=== PATIENT | female | born 1960 | race Caucasian/White ===

== ENCOUNTER 2023-09-13 09:09 | Emergency (ER) | payer OTHER, SELFPAY ==
[2023-09-13] VITALS (17 sets, daily range): BP systolic 143–155; BP diastolic 79–102; PULSE 86; RESP 16; TEMP 37.1; O2SAT 92–99
--- NOTE | ~2023-09-13 | CT_ITS ---
EXAMINATION: CT brain wo con DATE: 09/13/2023 11:39 INDICATION: New headache TECHNIQUE: Computed tomography (CT) of the head was performed without intravenous contrast. The mA wa s adjusted according to patient size. Iterative reconstruction technique was employed. Exam dose: 60 5.33 mGy-cm total exam DLP. COMPARISON: None FINDINGS: No intracranial mass lesion or hemorrhage or recent cerebrovascular accident, midline shift or mass effect effect. Normal ventricular size. No subdural or epidural hematoma is detected. No fracture or bone destruction of the cranial vault. The mastoid air cells and included paranasal si nuses are unremarkable. IMPRESSION: No significant abnormality Reviewed, dictated and finalized at [facility]. Reviewed, dictated and finalized at location A. ITION NOTCHER IMPRESSION: No significant abnormality
--- NOTE | 2023-09-13 10:34 | ECG_ITS ---
Measurements Intervals [place] Rate: 73 P: 43 [place]: 158 QRS: 24 QRSD: 70 T: 43 QT: 379 QTc: 418 Interpretive Statements SINUS RHYTHM LOW QRS VOLTAGE IN PRECORDIAL LEADS [QRS DEFLECTION < 1.0 mV IN CHEST LEADS] NO PREVIOUS ECG AVAILABLE FOR COMPARISON Electronically Signed On 09-13-2023 19:50:53 SUSPECT ARTIST SUPERVISOR by Karen Olivas M.D.
[2023-09-13] MEDS: PROCHLORPERAZINE EDISYLATE 10 MG/2 ML VIAL IV PUSH (10:47)
[2023-09-13] MEDS: diphenhydrAMINE HCl INJ 50 MG/ML VIAL 25 MG IV PUSH (10:47)
[2023-09-13] MEDS: SODIUM CHLORIDE 0.9% IV 500 ML 999 ML IV CONT (10:47)
[2023-09-13 10:54] LABS: Basophils Absolute Auto 0.1 K/mm3 (0.0-0.1); Basophils Percent Auto 0.8 % (0.2-1.2); Eosinophils Absolute Auto 0.1 K/mm3 (0-0.3); Eosinophils Percent Auto 0.9 % (0-4.4); Hemoglobin 12.3 g/dL (12.0-15.0); Immature Granulocyte Absolute 0.05 K/mm3 (0.00-0.031); Immature Granulocyte Percent A 0.7 % (0-0.5); Lymphocytes Absolute Auto 1.77 K/mm3 (0.9-3.2); Lymphocytes Percent Auto 23.9 % (18.3-44.2); Mean Corpuscular HGB Conc 32.4 g/dl (32-36); Mean Corpuscular Hemoglobin 26.9 pg (26-34); Mean Platelet Volume 10.3 fl (7.4-10.4); Monocytes Absolute Auto 0.5 K/mm3 (0.1-0.6); Monocytes Percent Auto 6.1 % (2.6-8.5); Neutrophils Percent Auto 67.6 % (45.5-73.1); Platelet Count Result 382 k/mm3 (150-375); Red Blood Count 4.58 M/mm3 (4.2-5.4); Red Cell Distribution Width 13.6 % (11.5-14.5); White Blood Count 7.4 K/mm3 (4.5-10.0)
[2023-09-13 11:07] LABS: Alanine Aminotransferase 26 U/L (6-35); Albumin Level 3.8 g/dL (3.5-5.1); Alkaline Phosphatase 109 U/L (38-126); Anion Gap 5 mmol/L (8-16); Aspartate Amino Transferase 26 U/L (14-36); Bilirubin,Total 0.5 mg/dL (0.2-1.3); Blood Urea Nitrogen 12 mg/dL (7-17); Calcium 8.9 mg/dL (8.4-10.2); Carbon Dioxide 29 mmol/L (22-30); Chloride 103 mmol/L (98-107); Estimated CRCL calculation 103 ml/min; Estimated Glomerular Filt Rate > 60; Glucose 109 mg/dL (65-110); Potassium 3.8 mmol/L (3.4-5.0); Sodium 137 mmol/L (137-145)
--- NOTE | 2023-09-13 11:14 | ED.HA ---
HPI - Headache General Chief Complaint: Headache Stated Complaint: headache Time Seen by Provider: 09/13/23 10:20 Source: patient, RN notes reviewed and old records reviewed Mode of arrival: ambulatory Limitations: no limitations History of Present Illness HPI Narrative: This is a 62 year old female who presents for evaluation of headache. She states she has been waking up with severe headache for past 4 days. She reports headache described as pressure that is located frontal and posterior. She reports pain was 9/10 but it is now 5/10. She reports her blood pressure is elevated when she has her pain. This morning her blood pressure was 170s/90 . She took a dose of her husbands antihypertensive this morning. She denies associated nausea, vomiting, dizziness, blurred vision, focal weakness or URI symptoms. She denies history of headaches. She also took Excedrin migraine today. Related Data Home Medications Medication Instructions Recorded Confirmed escitalopram oxalate 20 mg tablet 20 mg PO DAILY 07/23/19 07/23/19 multivitamin 1 tablet PO DAILY 07/23/19 07/23/19 Allergies Allergy/AdvReac Type Severity Reaction Status Date / Time ciprofloxacin Allergy Unknown Unknown Verified 09/13/23 09:49 codeine AdvReac Unknown Rash Verified 09/13/23 09:49 Review of Systems Constitutional: Constitutional: Denies weakness Cardiovascular: Cardiovascular: Denies syncope, Denies rapid heart rate, Denies irregular heart rhythm, Denies leg edema and Denies dyspnea Respiratory: Respiratory: Denies chest congestion, Denies hemoptysis, Denies excessive phlegm production and Denies dyspnea Gastrointestinal: Gastrointestinal: Denies abdominal pain, Denies hematochezia, Denies diarrhea and Denies vomiting Genitourinary: Genitourinary: Denies hematuria and Denies dysuria Musculoskeletal: Musculoskeletal: Denies joint swelling, Denies loss of height and Denies muscle weakness Neurologic: Denies syncope, Reports headache(s), Denies focal weakness and Denies weakness PMFSH Past Medical History Medical History Adhesive capsulitis of left shoulder Cervical cancer Depression Hearing loss Left shoulder tendinitis Obesity Ovarian cancer Post-operative nausea and vomiting Vertigo Vision loss reading glasses Surgical History Surgical History H/O: hysterectomy Hx of foot surgery L foot plantar fasciitis/tarsal tunnel surgery Family History Family History Sibling Carcinoma of colon Mother Carcinoma of colon, Onset Age: 42 Patient's mother is Other Family history of malignant neoplasm of breast Social History Social History Smoking status: Never smoker Second hand tobacco smoke exposure: No Alcohol intake: current Alcohol use details: occasionally Substance use: never Living arrangements: with family Occupation/Education: retired Gender identity (if verbalized by the patient): Female Exam Narrative: GENERAL: Well-appearing, well-nourished, and in no acute distress. HEAD: Normocephalic, atraumatic EYES: PERRLA and EOMI, conjunctiva clear without discharge EARS: TM's clear bilaterally without erythema or dullness NOSE: Nares clear, no rhinorrhea or epistaxis THROAT:Mucous membranes moist, Oropharynx normal without erythema, exudate, peritonsillar swelling or fluctuance NECK: Supple, without lymphadenopathy or mass RESPIRATORY: No respiratory distress, Airway patent, Respirations non-labored, Clear to auscultation without rales, rhonchi or wheeze HEART: Regular rate and rhythm. No murmur heard. Normal peripheral pulses. ABDOMEN: Soft, nontender, nondistended, normal active bowel sounds. No masses. No rebound or guarding, No organomegaly. EXTREMITIES: No edema, nor
== END 2023-09-13 14:07 | disposition home or self-care (01) ==
PROVIDERS: Emergency Provider General Practice; PCP Family Medicine
DX: R51.9 Headache, unspecified (principal); R03.0 Elevated blood-pressure reading, without diagnosis of hypertension; F32.A Depression, unspecified; Z85.41 Personal history of malignant neoplasm of cervix uteri
CPT/HCPCS: 36415; 70450; 80053; 85025; 93005; 96361; 96374; 96375; 99284; J0780; J1200; J7040

== ENCOUNTER 2024-06-01 09:50 | Outpatient (CLI) | payer OTHER, SELFPAY ==
--- NOTE | ~2024-06-01 | US_ITS ---
EXAMINATION: US right upper quadrant DATE: 06/01/2024 10:10 INDICATION: Abnormal liver function tests. TECHNIQUE: Multiple grayscale and Doppler ultrasound images of the abdomen were obtained. COMPARISON: None FINDINGS: The visualized portions of the head and body of the pancreas are normal. The liver is chris l without focal lesion. No liver surface nodularity. There is normal flow in main portal vein. The ga llbladder is normal in size. No gallstones or gallbladder wall thickening. There is no sonographic Mu rphy's sign. The common duct is normal and measures 5 mm. IMPRESSION: 1. Normal right upper quadrant ultrasound. Reviewed, dictated and finalized at location [facility].
== END 2024-06-01 09:51 | disposition home or self-care (01) ==
LOC: MICIMG 09:51
PROVIDERS: PCP Internal Medicine; Visit Provider Internal Medicine
DX: R74.8 Abnormal levels of other serum enzymes (principal)
CPT/HCPCS: 76705

== ENCOUNTER 2024-08-25 07:40 | Outpatient (NON) | payer OTHER, SELFPAY | END 2024-08-25 07:41 | disposition home or self-care (01) | LOC: ANHLAB 08-26 07:41 | PROVIDERS: PCP Internal Medicine; Visit Provider Internal Medicine Gastroenterology | DX: D12.2 Benign neoplasm of ascending colon (principal); Z86.0100 Personal history of colon polyps, unspecified | CPT/HCPCS: 88305 ==

== ENCOUNTER 2024-08-25 07:56 | Day surgery (SDC) | payer OTHER, SELFPAY ==
[2024-06-25 07:24] VITALS: BMI 33.8
[2024-08-10 10:02] VITALS: BMI 33.5
--- NOTE | 2024-08-25 06:56 | P.PNAN_ITS ---
Anes - Initial Pre Proc Eval Procedure: Operation Date: 08/25/24 10:30 Proposed Procedures p Diagnostic Colonoscopy - Mikel Mccain MD Date/Time: 08/25/24 06:56 Surgeon: Mikel Mccain MD Pre Op Diagnosis: Chatterjee syndrome, history of colon polyps, Patient Data Age: 63 Gender: F Height: 1.73 m Weight: 100 kg Allergies Allergy/AdvReac Type Severity Reaction Status Date / Time oxycodone Allergy Intermediate Migraine Verified 08/25/24 09:22 ciprofloxacin Allergy Unknown Unknown Verified 08/25/24 09:21 Home Medications Medication Instructions Recorded Confirmed Type multivitamin 1 tablet PO DAILY 07/23/19 08/25/24 History amlodipine 5 mg tablet 5 mg PO DAILY 08/10/24 08/25/24 History atorvastatin 10 mg tablet 10 mg PO DAILY 08/10/24 08/25/24 History fluoxetine 20 mg capsule 20 mg PO DAILY 08/10/24 08/25/24 History omeprazole 40 mg capsule,delayed 40 mg PO DAILY 08/10/24 08/25/24 History release Patient hx anesthesia problems: none Family hx anesthesia problems: none Results Review: All pre-operative results and documents have been reviewed as part of the pre- operative evaluation. [facility] Past Medical History Medical History (Updated 08/25/24 @ 06:57 by Reagan Whyte DO) Adhesive capsulitis of left shoulder Cervical cancer Depression Hearing loss Hyperlipidemia Hypertension Irregular heart beat Left shoulder tendinitis Chatterjee syndrome type 1 Obesity Ovarian cancer Post-operative nausea and vomiting Vertigo Vision loss reading glasses Surgical History Surgical History H/O: hysterectomy Hx of foot surgery L foot plantar fasciitis/tarsal tunnel surgery Family History Family History Sibling Carcinoma of colon Mother Carcinoma of colon, Onset Age: 42 Patient's mother is Other Family history of malignant neoplasm of breast Social History Social History Smoking status: Never smoker Second hand tobacco smoke exposure: No Alcohol intake: never Alcohol use details: occasionally Substance use: never Substance use type: does not use Living arrangements: with family Occupation/Education: retired Gender identity (if verbalized by the patient): Female Spiritual care concerns: No Anes - Eval Final PreProcedure Day of Procedure 08/25/24 06:56 Patient weight: obese Heart: regular rate and rhythm Lungs: clear to auscultation Airway: Mallampati scale class 1 Neurological: alert and oriented Last oral intake: >/= 8 hours ASA classification: III Emergent: no Anesthetic plan: proceed Anesthesia type and monitoring: general GIVS and standard monitoring Results Review: All pre-operative results and documents have been reviewed as part of the pre- operative evaluation. Informed Consent: The patient's anesthetic plan and its attendant risks and benefits were discussed with the patient/family/POA. Questions were solicited and answers provided to the satisfaction of the patient/family/POA.
[2024-08-25 09:23] VITALS: BP 133/90; PULSE 92; RESP 18; TEMP 37.4; O2SAT 98
[2024-08-25 09:25] VITALS: BMI 34.4
[2024-08-25] MEDS: LACTATED RINGERS 1,000 ML 150 ML IV CONT (09:39)
--- NOTE | 2024-08-25 10:24 | PM.HPGS ---
History of Present Illness History of Present Illness Consent: Risks, benefits, and alternatives have been discussed and questions answered. Patient agrees to proceed with procedure. Chief complaint: Chatterjee syndrome, history of colon polyps, Narrative: Freda Lloyd is a 63 year old female presents for colonoscopy. Patient has a history of Chatterjee syndrome. She has had colon polyps in the past on multiple occasions. Most recently 2 years ago. Patient's family history is significant both mother and brother have had colon cancer. Patient herself has had a gynecological cancer as had has her niece. Patient tested positive for Chatterjee syndrome. Has had colonoscopy at least every 2 years recently. Review of Systems Review of Systems: All systems reviewed & are unremarkable except as noted in HPI and below PMFSH Past Medical History Medical History (Updated 08/25/24 @ 06:57 by Reagan Whyte DO) Adhesive capsulitis of left shoulder Cervical cancer Depression Hearing loss Hyperlipidemia Hypertension Irregular heart beat Left shoulder tendinitis Chatterjee syndrome type 1 Obesity Ovarian cancer Post-operative nausea and vomiting Vertigo Vision loss reading glasses Surgical History Surgical History H/O: hysterectomy Hx of foot surgery L foot plantar fasciitis/tarsal tunnel surgery Family History Family History Sibling Carcinoma of colon Mother Carcinoma of colon, Onset Age: 42 Patient's mother is Other Family history of malignant neoplasm of breast Social History Social History Smoking status: Never smoker Second hand tobacco smoke exposure: No Alcohol intake: never Alcohol use details: occasionally Substance use: never Substance use type: does not use Living arrangements: with family Occupation/Education: retired Gender identity (if verbalized by the patient): Female Spiritual care concerns: No Meds Home Medications and Allergies Home Medications Medication Instructions Recorded Confirmed Type multivitamin 1 tablet PO DAILY 07/23/19 08/25/24 History amlodipine 5 mg tablet 5 mg PO DAILY 08/10/24 08/25/24 History atorvastatin 10 mg tablet 10 mg PO DAILY 08/10/24 08/25/24 History fluoxetine 20 mg capsule 20 mg PO DAILY 08/10/24 08/25/24 History omeprazole 40 mg capsule,delayed 40 mg PO DAILY 08/10/24 08/25/24 History release Allergies Allergy/AdvReac Type Severity Reaction Status Date / Time oxycodone Allergy Intermediate Migraine Verified 08/25/24 09:22 ciprofloxacin Allergy Unknown Unknown Verified 08/25/24 09:21 Vital Signs Vital Signs - 24 hr 08/25/24 09:23 Temperature 99.3 F Pulse Rate 92 Respiratory Rate 18 Blood Pressure 133/90 Pulse Oximetry 98 Oxygen Delivery Room Air Exam Narrative: Physical exam reveals patient to be alert. Vital signs stable. HEENT exam is unremarkable. Patient is anicteric. Lungs are clear to auscultation and percussion. Heart is without murmur or extra sounds. Abdomen bowel sounds are present soft nontender with no organomegaly. Digital external rectal exam normal. Assessment and Plan Assessment and plan (1) Chatterjee syndrome type 1: Code(s): Z15.09 - Genetic susceptibility to other malignant neoplasm Status: Acute Assessment and Plan: Patient has tested positive for Chatterjee syndrome. She has a history of colon polyps on multiple occasions. Family history of colon cancer. Personal history of gynecological cancer. Plan for surveillance colonoscopy at least every 2 years.
[2024-08-25 11:35] VITALS: BP 107/74; PULSE 83; RESP 14; O2SAT 100
[2024-08-25 11:45] VITALS: BP 102/74; PULSE 76; RESP 15; O2SAT 100
[2024-08-25 11:55] VITALS: BP 112/82; PULSE 77; RESP 14; O2SAT 94
--- NOTE | 2024-08-25 12:47 | WPDANESPN ---
Anes - Prog Note Post-Op Date/Time: 08/25/24 12:47 Cardiovascular status: normal Respiratory status: normal Airway patency: baseline Mental status: baseline Post-Op hydration status: normal Vital Signs: Last Vital Signs Temp 37.4 C 08/25/24 09:23 Pulse 77 08/25/24 11:55 Resp 14 08/25/24 11:55 BP 112/82 08/25/24 11:55 Pulse Ox 94 08/25/24 11:55 O2 Del Method Room Air 08/25/24 11:55 Pain Score (VAS): 0 I/O: Intake & Output 08/24/24 08/25/24 08/25/24 23:59 07:59 15:59 Intake Total 500 Balance 500 Post-procedural complaints: none Patient Feedback: Patient satisfied with anesthetic care. Other Findings: Patient vital signs back to baseline. Patient denies nausea and vomiting. Patient's pain under control. Patient OK for discharge.
== END 2024-08-25 12:09 | disposition home or self-care (01) ==
PROVIDERS: PCP Internal Medicine; Visit Provider Internal Medicine Gastroenterology
PROC: 0DJD8ZZ Inspection of Lower Intestinal Tract, Via Natural or Artificial Opening Endoscopic (ICD-10-PCS; CPT 45378; principal; 2024-08-25 10:30)
DX: Z86.0100 Personal history of colon polyps, unspecified (principal); D12.2 Benign neoplasm of ascending colon; K64.8 Other hemorrhoids
CPT/HCPCS: 45385

== ENCOUNTER 2024-08-26 12:56 | Outpatient (CLI) | payer OTHER, SELFPAY ==
--- NOTE | ~2024-08-26 | XR_ITS ---
3 VIEWS LUMBAR SPINE Ordering provider: Arturo Toney, History: . low back pain . Comparison: None. FINDINGS: VERTEBRAL BODIES: No visible fracture or subluxation. DISK SPACES: Narrowing of the disc L5-S1. Attempt of lumbarization of S1. SOFT TISSUES: Normal. IMPRESSION: No acute osseous abnormality lumbar spine. Degenerative disc disease at the level of L5-S1. Reviewed, dictated and finalized at location A. TLEMAN
== END 2024-08-26 12:57 | disposition home or self-care (01) ==
PROVIDERS: PCP Internal Medicine; Visit Provider Internal Medicine
DX: M51.360 Other intervertebral disc degeneration, lumbar region with discogenic back pain only (principal)
CPT/HCPCS: 72100

== ENCOUNTER 2024-10-29 08:30 | Outpatient (CLI) | payer OTHER, SELFPAY ==
--- NOTE | ~2024-10-29 | MR_ITS ---
EXAMINATION: MR lumbar spine wo con DATE: 10/29/2024 09:03 INDICATION: Low back pain TECHNIQUE: Magnetic resonance imaging (MRI) of the lumbar spine was performed without intravenous con trast. Sequences included sagittal T2-weighted FSE, sagittal T2-weighted FS FSE, sagittal T1-weighted FSE, and axial T2-weighted FSE. COMPARISON: None FINDINGS: Alignment is normal. Vertebral body heights are normal. Normal marrow signal. Severe disc height los s with fibrofatty degenerative endplate changes at L5-S1. Mild disc height loss at L4-L5. The conus m edullaris terminates at L2. There is normal signal in the caudal spinal cord. Paravertebral soft tiss ues are unremarkable. The following disc levels are specifically discussed: T12-L1: The disc does not extend beyond the endplate margin. There is mild bilateral facet joint oste oarthritis. There is no neural foraminal stenosis. There is no central canal stenosis. L1-L2: The disc does not extend beyond the endplate margin. There is mild bilateral facet joint osteo arthritis. There is no neural foraminal stenosis. There is no central canal stenosis. L2-L3: The disc does not extend beyond the endplate margin. There is moderate left and mild to modera te right facet joint osteoarthritis. There is no neural foraminal stenosis. There is no central canal stenosis. L3-L4: Disc is mildly bulging. There is mild left and moderate to severe right facet joint osteoarthr itis. There is mild bilateral neural foraminal stenosis. There is no central canal stenosis. L4-L5: Disc is bulging. There is hypertrophy of the ligamentum flavum. There is moderate left and mo derate to severe right facet joint osteoarthritis. There is mild bilateral neural foraminal stenosis. There is mild central canal stenosis. L5-S1: The disc does not extend beyond the endplate margin with small endplate osteophytes at the jair ateral foraminal zones. There is moderate bilateral facet joint osteoarthritis. There is mild bilater al neural foraminal stenosis. There is no central canal stenosis. IMPRESSION: 1. Lumbar spondylosis, severe at L5-S1 and minimal to mild in the more cephalad lumbar spine. Reviewed, dictated and finalized at location B. ETING OPERATIONS SPECIALIST
== END 2024-10-29 08:31 | disposition home or self-care (01) ==
LOC: MICIMG 08:30
PROVIDERS: PCP Internal Medicine; Visit Provider Internal Medicine
DX: M47.816 Spondylosis without myelopathy or radiculopathy, lumbar region (principal); M47.817 Spondylosis without myelopathy or radiculopathy, lumbosacral region
CPT/HCPCS: 72148